=== PATIENT | female | born 1985 ===

== ENCOUNTER 2021-12-27 16:53 | Emergency (ER) | payer SELFPAY ==
[2021-12-27 18:52] VITALS: BP 115/62
--- NOTE | 2021-12-27 19:25 | Emergency Department Report ---
ED Alcohol HPI - General Chief Complaint: Alcohol Stated Complaint: ETOH Time Seen by Provider: 12/27/21 18:25 Source: patient, EMS Mode of arrival: Stretcher Limitations: No Limitations - History of Present Illness Initial Comments: 36-year-old female with no significant past medical history presents to the hospital complaining of a recent acute alcohol intoxication. Patient states she drank too much last night. Apparently patient stayed at an over sales driver's home after hanging out on night and was subsequently brought to the ER this evening. Initially was reported patient was alert and oriented x1, crying, and unable to stay awake. At time my evaluation she is alert, oriented x3, and denies physical pain. She states she has been in [place] for the last 4 days and is visiting from [place]. She dropped her son off at his father's house in [place] and plans to go to the airport today to purchase a ticket to return back to [place]. Patient is noted to be tachycardic but denies palpitations or shortness of breath. She also denies drug use or recent physical harm. - Related Data Allergies Allergy/AdvReac Type Severity Reaction Status Date / Time Penicillins Allergy Rash Verified 12/27/21 18:52 ED Review of Systems ROS: Stated complaint: ETOH Other details as noted in HPI Comment: All other systems reviewed and negative ED Past Medical Hx - Past Medical History Previous Medical History?: No Hx Arthritis: No - Social History Smoking Status: Never Smoker Substance Use Type: Alcohol ED Physical Exam - General Limitations: No Limitations - Other Other exam information: General: No acute distress Head: Atraumatic Eyes: normal appearance ENT: Moist mucous membranes Neck: Normal appearance, no midline tenderness Chest: Clear to auscultation bilaterally CV: Tachycardic regular rhythm Abdomen: Soft, normal bowel sounds, nontender, nondistended, no rebound or guarding Back: Normal inspection Extremity: Normal inspection, full range of motion Neuro: Alert O x 3, no facial asymmetry, speech clear, no gross motor sensory deficit Psych: Appropriate behavior Skin: No rash ED Course Vital Signs 12/27/21 12/27/21 12/27/21 17:05 18:40 18:53 Temperature 98.0 F Pulse Rate 131 H 147 H 146 H Respiratory 16 15 Rate Blood Pressure 115/62 Blood Pressure 118/80 115/62 [Left] O2 Sat by Pulse 95 9 L 97 Oximetry ED Medical Decision Making - Medical Decision Making 36-year-old female presents to the hospital reports to drinking too much. She is significantly tachycardic at time ER evaluation with otherwise normal vital signs. Patient is adamant about declining additional work-up including EKG. She states she just wants to be discharged so that she can go to the airport and purchase a flight back home to [place]. Despite offering multiple times patient repeatedly declines additional work-up. She is currently alert and oriented x3 and has a right to refuse care at this time and I cannot force her to have further evaluation. Critical Care Time: No Critical care attestation.: If time is entered above; I have spent that time in minutes in the direct care of this critically ill patient, excluding procedure time. ED Disposition Clinical Impression: Alcohol intoxication, Tachycardia, Refusal of care by patient Disposition: 07 LEFT AGAINST MEDICAL ADVICE Is pt being admited?: No Does the pt Need Aspirin: No Condition: Stable Instructions: Binge-Drinking Information, Adult, Sinus Tachycardia Additional Instructions: You have refused care in the emergency department beyond initial triage and repeat vital signs. It is recommended that you obtain EKG, IV access, IV fluids, and laboratory findings to evaluate your current status and the calls of fast heart rate. You are choosing to leave prior to completion of evaluation and are at high risk for worsening symptoms which could lead to disability and . Please return if you worsen or decide to complete your emergency department evaluation Referrals: PRIMARY MD JOANA [Primary Care Provider] - 3-5 Days MANUELITO KINSEY MD [Staff Physician] - 3-5 Days Forms: AMA Form Time of Disposition: 19:27
== END 2021-12-27 20:03 | disposition left against medical advice (07) ==
LOC: ED 16:53
DX: F10.129 Alcohol abuse with intoxication, unspecified (principal); R00.0 Tachycardia, unspecified; Y90.9 Presence of alcohol in blood, level not specified
CPT/HCPCS: 99284